=== PATIENT | female | born 1995 | race Caucasian/White ===

== ENCOUNTER 2016-10-20 22:12 | Inpatient (IN) ==
[2016-10-20] MEDS ORDERED: PROMETHAZINE 25 MG INJECTION IM ONE (23:00)
[2016-10-20] MEDS ORDERED: MORPHINE SULFATE 10 MG SYRINGE IM ONE (23:00)
[2016-10-20] MEDS ORDERED: CARBOPROST 250 MCG/ML INJECTION IM PRN (23:58)
[2016-10-20] MEDS ORDERED: MAG-AL + SIM ORAL LIQUID 30ml PO PRN (23:58)
[2016-10-20] MEDS ORDERED: ACETAMINOPHEN 500 MG TABLET PO PRN (23:58)
[2016-10-20] MEDS ORDERED: CALCIUM CARBONATE Chewable 500mg TABLET PO PRN (23:58)
[2016-10-20] MEDS ORDERED: METHYLERGONOVINE 0.2 MG/ML INJECTION IM PRN (23:58)
[2016-10-20] MEDS ORDERED: LIDOCAINE 1% (10mg/ml) 2mL INJ PF SDV ID PRN (23:58)
[2016-10-21] MEDS: LR 1,000 ML IV SCH ×2 (00:37→01:47)
[2016-10-21 01:59] VITALS: BMI 29.5
[2016-10-21] MEDS ORDERED: ROPIVACAINE 1% 10MG/ML INJ 200 MG, SUFentanil 50 MCG in NS 100 ML EPI PRN (02:00)
--- NOTE | 2016-10-21 07:51 | OB/GYN Procedure Note ---
Delivery date: 10/21/16 Intrapartal events: None Induction method: none Delivery monitor: external FHT Route of delivery: Episiotomy description: None Laceration description: Perineal - 2nd Degree Delivery repair: vicryl Estimated blood loss (mL): 200 Anesthesia type: Epidural Disposition: floor Complications: None - [place] Baby 1 Infant gender: Female presentation: Vertex Placenta delivery description: Spontaneous cord vessel description: 3 Vessels at 1 minute: 8 at 5 minutes: 9
[2016-10-21] MEDS ORDERED: SALINE FLUSH 10ml SYRINGE IVF PRN (08:28)
[2016-10-21] MEDS ORDERED: CALCIUM CARBONATE Chewable 500mg TABLET PO PRN (08:28)
[2016-10-21] MEDS ORDERED: DiphenhydrAMINE 25 MG CAPSULE PO PRN (08:28)
[2016-10-21] MEDS ORDERED: HYDROCORTISONE 2.5% CREAM 30gm RECTALLY PRN (08:28)
[2016-10-21] MEDS ORDERED: MAG-AL + SIM ORAL LIQUID 30ml PO PRN (08:28)
[2016-10-21] MEDS ORDERED: OXYTOCIN DRIP 30 UNIT/500 ML ML IV SCH (08:28)
[2016-10-21] MEDS ORDERED: OXYTOCIN DRIP 30 UNIT/500 ML ML IV PRN (08:28)
[2016-10-21] MEDS ORDERED: DOCUSATE CALCIUM 240 MG CAPSULE PO SCH (09:00)
[2016-10-21] MEDS: IBUPROFEN 800 MG TABLET PO PRN ×2 (10:53→20:23)
[2016-10-21] MEDS: PRENATAL VITAMIN TABLET PO SCH (10:56)
--- NOTE | 2016-10-21 13:34 | Anesthesia Preoperative Report ---
Anesthesia Preoperative Record - Date and Time Date: 10/21/16 Preoperative Diagnosis: Proposed Procedure: labor epidural NPO Since Date: 10/20/16 NPO Since Time: 18:00 Allergies/Adverse Reactions: Allergies Allergy/AdvReac Type Severity Reaction Status Date / Time No Known Allergies Allergy Verified 10/21/16 04:16 - Vital Signs Vital Signs: Oxygen Delivery Method Room Air Height and Weight: Height 5 ft 7 in Weight 85.45 kg Body Mass Index 29.5 - Medications Inpatient Medications: Current Medications Al Hydroxide/Mg Hydroxide (Maalox Plus) 30 ml PO Q4H PRN PRN Reason: Indigestion Calcium Carbonate (Tums) 500 - 1,000 mg PO Q2H PRN Diphenhydramine HCl (Benadryl) 25 - 50 mg PO Q6H PRN PRN Reason: Itching Docusate Calcium (Surfak) 240 mg PO DAILY [facility] Last Admin: 10/21/16 10:58 Dose: 240 mg Hydrocortisone (Anusol-Hc 2.5% Cream) 1 applic RECTALLY PRN PRN PRN Reason: Hemorrhoids Ibuprofen (Motrin) 800 mg PO Q8H PRN PRN Reason: Pain Last Admin: 10/21/16 10:53 Dose: 800 mg Magnesium Hydroxide (Mom) 30 ml PO DAILY PRN PRN Reason: Constipation Oxycodone/Acetaminophen (Percocet 5/325) 1 - 2 tab PO Q4H PRN PRN Reason: Pain Phenylephrine HCl (Anusol Supp) 1 supp ME PRN PRN Prenat Multivit/[place]/Iron/Folic Ac ([place] ) 1 tab PO DAILY [facility] Last Admin: 10/21/16 10:56 Dose: Not Given Sodium Chloride (Iv Flush) 10 - 80 ml IVF PRN PRN PRN Reason: [place] Home Medications: Home Medications Medication Instructions Recorded Confirmed Type Vitamins 1 dose PO DAILY 09/25/16 10/21/16 History Is Patient on Beta Lizeth?: No - Medical History Respiratory: DENIES: Asthma Cardiovascular: DENIES: Hypertension Renal/Endocrine: DENIES: Diabetes Mellitus Type 2 Other History: Reports: Now - Surgical History Reproductive Surgery/Treatment: DENIES: Section Anesthesia Reactions: None Hx Family Anesthesia Reaction: No History of Motion Sickness: No - Social History Smoking Status: Never smoker Hx Chewing Tobacco Use: No Second Hand Exposure: No Substance Use Type: does not use - Pertinent Findings Laboratory: CBC and BMP 10/21/16 00:23 - Physical Exam Respiratory Exam: Present: lungs clear Cardiovascular Exam: Present: regular rate and rhythm - Airway Assessment Mallampati Score: I TMD: 3 Fingerbreadths Neck Extension: good Overall Assessment: may be difficult intubation - ASA ASA Score: 2 - Plan Anesthesia: MAC - Discussion Discussion: Discussed risks/options/alternatives of anesthesia and questions answered. Patient consents. Nursing pain assessment noted. Present for Discussion: spouse (significant other), family member Attestation Statement: Prior to the delivery of any anesthetic medication, I examined the patient, developed the plan, obtained the patient's consent and discussed the risk and benefits of the procedure with the patient/guardian. - Additional Information Seen by Anesthesia: Yes
--- NOTE | 2016-10-21 14:20 | Anesthesia Postoperative Note ---
- Date and Time Date: 10/21/16 Time: 14:20 - Status Patient Participated in Evaluation: Patient Participated in Person Vital Signs: Oxygen Delivery Method Room Air Respiratory Function: Airway Patent Cardiovascular Function: Regular Pulse Mental Status: Alert and Oriented Pain Intensity: 2 Hydration: Taking PO Fluids Complications During Recover: None Apparent Post Anesthesia Care Notes: full motor and sensation returned- ambulating without complication - Follow-Up Instructions Instructions: Per Surgeon
[2016-10-21] MEDS: Oxycodone/Acetaminophen 5/325 1 TAB PO PRN (21:43)
[2016-10-22] MEDS: Oxycodone/Acetaminophen 5/325 1 TAB PO PRN ×3 (03:44→11:58)
[2016-10-22] MEDS: IBUPROFEN 800 MG TABLET PO PRN ×2 (03:48→11:58)
--- NOTE | 2016-10-22 08:23 | Discharge Instructions ---
Discharge Plan - Med Rec/Dispo Prescriptions: New Oxycodone/APAP 5/325 [Percocet 5/325] 1 - 2 tab PO Q4H PRN #20 tablet PRN Reason: Pain Ibuprofen [Motrin] 800 mg PO Q8H PRN #20 tablet PRN Reason: Pain Continue Vitamins 1 dose PO DAILY Discharge Instructions/Outpatient Orders: Final Provider Discharge Instructions Location: Determined By Patient - Disposition 01 Discharged Home, Self-Care
--- NOTE | 2016-10-22 08:26 | OB/GYN Progress Note ---
OB-PP Progress Note - General PPD1 Weeks: 39 Days: 6 Maternal Group B Strep: Negative Maternal blood type: A+ Maternal Rubella Status: Immune - Subjective Date: 10/22/16 Lochia: Moderate Pain: contolled Voiding: voiding Nausea or Vomiting Present: No - Objective Vital Signs: Last Vital Signs Temp 97.6 F 10/21/16 22:58 Pulse 82 10/21/16 22:58 Resp 18 10/21/16 22:58 BP 107/58 10/21/16 22:58 Pulse Ox 97 10/21/16 22:58 General: alert and oriented Respiratory: non-labored Abdomen: fundus firm Extremities: non-tender Edema: none - Assessment Assessment: SP, - Plan Plan: routine care, discharge home Expected date of discharge: 10/22/16
[2016-10-22 08:37] VITALS: BP 111/72; PULSE 86; RESP 14; TEMP 97.9; O2SAT 100
--- NOTE | 2016-10-22 10:46 | Labor and Delivery Note ---
DATE OF SERVICE: 10/21/2016 VAGINAL DELIVERY NOTE Normal spontaneous vaginal delivery of a live female infant with the name of Liana Dunbar in the MAXINE position over an intact perineum with epidural anesthesia. The patient reported at term to Maternal Child Unit at [facility], noted to be 2.5 cm and complaining of consistent painful contractions. She was given subcu morphine and IM Phenergan for obstetrical rest. Checked again in an hour. She was noted to be 4 cm and she was admitted for labor and noted to be GBS negative. Patient continued to labor well. On next exam was 6 cm and requesting epidural anesthesia. She received epidural anesthesia and continued to progress well at approximately a centimeter an hour. She was originally admitted about 30 minutes prior to midnight and was complete by 6 a.m. but noted to be 0 station. She labored down for an hour-and-a -half and then began pushing. Patient pushed for approximately 45 minutes and had a rather short second stage of labor. Third stage of labor was short as well as there was spontaneous delivery of the placenta approximately 3 minutes after the infant was delivered. At delivery there was a nuchal cord that was loose x 1 that was easily reduced. Apgars of the infant were 8/9/9 and weight was 3,555 grams or 7 pounds 13.4 ounces. There was a second-degree perineal laceration and a left first-degree periurethral laceration. Both were repaired with ease. Estimated blood loss for the vaginal delivery was 200 ml. Mom and baby tolerated all procedures well, were doing well in the labor room recovering. LUBNA
[2016-10-22] MEDS: PRENATAL VITAMIN TABLET PO SCH (11:57)
== END 2016-10-22 12:15 | disposition home or self-care (01) | DRG 775 ==
LOC: MC 22:12 → OBOBS 22:12 → MC 23:01
PROVIDERS: ADMIT Obstetrics & Gynecology; ATTEND Obstetrics & Gynecology